=== PATIENT | female | born 1985 | race Hispanic/Latino ===

== ENCOUNTER 2016-08-04 08:40 | Emergency (ER) | payer MEDICAID ==
[2016-08-04] MEDS ORDERED: PHENERGAN/CODEINE 6.25-10 MG/5ML PO ONE (09:08)
[2016-08-04] MEDS ORDERED: TYLENOL/CODEINE PO ONE (09:18)
--- NOTE | 2016-08-04 10:14 | XRay Report ---
ROUTINE CHEST, TWO VIEWS: HISTORY: Cough. The trachea, heart, mediastinal contour, lung greer and bony thorax are unremarkable. IMPRESSION: Unremarkable chest x-ray.
[2016-08-04 10:32] LABS: Basophils % (Auto) 1.5 % (0.0-1.8); Mean Corpuscular HGB Conc 30 % (30-34); Platelet Count 304 K/mm3 (140-440); Red Blood Count 4.76 M/mm3 (3.65-5.03); Red Cell Distribution Width 17.5 % (13.2-15.2); White Blood Count 6.1 K/mm3 (4.5-11.0)
[2016-08-04 10:35] LABS: Hematocrit 30.9 % (30.3-42.9); Hemoglobin 9.1 gm/dl (10.1-14.3); Mean Corpuscular Hemoglobin 19 pg (28-32); Mean Corpuscular Volume 65 fl (79-97)
[2016-08-04 10:46] LABS: Anion Gap 16 mmol/L; Blood Urea Nitrogen 7 mg/dL (7-17); Calcium 8.4 mg/dL (8.4-10.2); Carbon Dioxide 24 mmol/L (22-30); Chloride 102.5 mmol/L (98-107); Glucose 93 mg/dL (65-100); Sodium 138 mmol/L (137-145)
[2016-08-04 11:08] VITALS: BP 157/94
--- NOTE | 2016-08-04 12:12 | Emergency Department Report ---
Entered by OCTAVIA IRVIN, acting as scribe for BECKA FERGUSON PA. - General Chief Complaint: Upper Respiratory Infection Stated Complaint: COUGH/SOB Time Seen by Provider: 08/04/16 09:18 Source: patient Mode of arrival: Ambulatory Limitations: No Limitations - History of Present Illness Initial Comments: 30 y/o female with history of anemia, presents to the ED c/o cough beginning 1.5 months ago. The cough is characterized as occasionally productive. Associated symptom of chest congestion, but she denies fever, abdominal pain, nausea, and vomiting. The symptoms are not alleviated by OTC cough medication ( cough syrup, theraflu, cough drops) and there are no aggravating factors. Positive for history of similar symptoms and patient was diagnosed with allergies at another ED approximately 5 months ago and prescribed an asthma pump and Zyrtec at that time. Patient states that she quit taking Zyrtec 1.5 months ago due to the cost associated. Noted the patient states she was diagnosed with hypertension while , but taken off her HTN medication by her PCP 8 months ago. MD Complaint: cough, other (chest congestion) -: month(s) Severity: moderate Severity scale (0 -10): 6 Consistency: constant Improves With: nothing Worsens With: nothing Context: other (patient states she has a Hx of allergies, seen here approximately 5 months ago and given an asthma pump) Associated Symptoms: other (chest congestion). denies: fever, abdominal pain, nausea, vomiting Treatments Prior to Arrival: other (OTC cough medicine (theraflu, cough syrup, cough drops)) - Related Data Previous Rx's Medication Instructions Recorded Last Taken Type Acetaminophen/Codeine 1 tab PO Q6H PRN #25 tab 06/10/14 Unknown Rx [Acetaminophen-Codeine #3 TAB] Cyclobenzaprine [Flexeril 10mg] 10 mg PO TID PRN #30 tablet 06/10/14 Unknown Rx Lisinopril/Hydrochlorothiazide 1 tab PO QDAY #90 tablet 06/10/14 Unknown Rx [Zestoretic 10-12.5 mg] Ibuprofen [Motrin 600 MG tab] 600 mg PO Q8H PRN #50 tablet 06/15/14 Unknown Rx Phenazopyridine [Pyridium] 200 mg PO TID #7 tablet 06/15/14 Unknown Rx Sulfamethoxazole/Trimethoprim 1 each PO BID #6 tablet 06/15/14 Unknown Rx [Bactrim Ds] Cyclobenzaprine [Flexeril] 10 mg PO TID PRN #15 tablet 02/15/16 Unknown Rx Diclofenac Sodium 75 mg PO BID #20 tablet.dr 02/15/16 Unknown Rx Albuterol Sulfate [Ventolin HFA] 2 puff IH Q4H PRN #1 hfa.aer.ad 03/26/16 Unknown Rx Cefuroxime [Ceftin] 500 mg PO Q12H #20 tablet 03/26/16 Unknown Rx Cetirizine HCl [ZyrTEC] 10 mg PO DAILY #30 capsule 03/26/16 Unknown Rx guaiFENesin/DEXTROMETHORPHAN 1 tab PO BID #10 tab 03/26/16 Unknown Rx [Mucinex DM ER 600-30 mg TAB] Acetamin/Codeine 120-12Mg/5 ml 5 ml PO TID PRN #100 ml 08/04/16 Unknown Rx [Tylenol/Codeine 120-12 mg/5 ml] Cetirizine HCl [ZyrTEC] 10 mg PO QDAY #30 tab.chew 08/04/16 Unknown Rx Docusate Sodium [Colace CAP] 100 mg PO BID PRN #20 capsule 08/04/16 Unknown Rx Ferrous Sulfate [Feosol 325 MG tab] 325 mg PO QDAY #30 tablet 08/04/16 Unknown Rx Allergies Allergy/AdvReac Type Severity Reaction Status Date / Time No Known Allergies Allergy Verified 08/04/16 09:02 ED Review of Systems Comment: All other systems reviewed and negative Constitutional: denies: fever Respiratory: cough (ocassionally productive), other (chest congestion) Gastrointestinal: denies: abdominal pain, nausea, vomiting ED Past Medical Hx - Past Medical History Hx Hypertension: Yes (WITH ) Additional medical history: Vaginal delivery x 2 - Surgical History Additional Surgical History: . T & A. TUBAL LIGATION - Social History Smoking Status: Never Smoker Substance Use Type: None - Medications Home Medications: Home Medications Medication Instructions Recorded Confirmed Last Taken Type Acetaminophen/Codeine 1 tab PO Q6H PRN #25 tab 06/10/14 Unknown Rx [Acetaminophen-Codeine #3 TAB] Cyclobenzaprine [Flexeril 10mg] 10 mg PO TID PRN #30 tablet 06/10/14 Unknown Rx Lisinopril/Hydrochlorothiazide 1 tab PO QDAY #90 tablet 06/10/14 Unknown Rx [Zestoretic 10-12.5 mg] Ibuprofen [Motrin 600 MG tab] 600 mg PO Q8H PRN #50 tablet 06/15/14 Unknown Rx Phenazopyridine [Pyridium] 200 mg PO TID #7 tablet 06/15/14 Unknown Rx Sulfamethoxazole/Trimethoprim 1 each PO BID #6 tablet 06/15/14 Unknown Rx [Bactrim Ds] Cyclobenzaprine [Flexeril] 10 mg PO TID PRN #15 tablet 02/15/16 Unknown Rx Diclofenac Sodium 75 mg PO BID #20 tablet.dr 02/15/16 Unknown Rx Albuterol Sulfate [Ventolin HFA] 2 puff IH Q4H PRN #1 hfa.aer.ad 03/26/16 Unknown Rx Cefuroxime [Ceftin] 500 mg PO Q12H #20 tablet 03/26/16 Unknown Rx Cetirizine HCl [ZyrTEC] 10 mg PO DAILY #30 capsule 03/26/16 Unknown Rx guaiFENesin/DEXTROMETHORPHAN 1 tab PO BID #10 tab 03/26/16 Unknown Rx [Mucinex DM ER 600-30 mg TAB] Acetamin/Codeine 120-12Mg/5 ml 5 ml PO TID PRN #100 ml 08/04/16 Unknown Rx [Tylenol/Codeine 120-12 mg/5 ml] Cetirizine HCl [ZyrTEC] 10 mg PO QDAY #30 tab.chew 08/04/16 Unknown Rx Docusate Sodium [Colace CAP] 100 mg PO BID PRN #20 capsule 08/04/16 Unknown Rx Ferrous Sulfate [Feosol 325 MG tab] 325 mg PO QDAY #30 tablet 08/04/16 Unknown Rx ED Physical Exam - General Limitations: No Limitations General appearance: other (The patient is well-developed and well-nourished. Patient is in NAD) - Head Head exam: Present: atraumatic, normocephalic - Eye Eye exam: Present: normal appearance, PERRL - ENT ENT exam: Present: normal orophraynx (no erythema, swelling, or exudates), TM's normal bilaterally (hearing grossly intact), normal external ear exam, other ( normal nasal mucosa with no nasal discharge) - Neck Neck exam: Present: full ROM (supple). Absent: tenderness, lymphadenopathy - Respiratory Respiratory exam: Present: normal lung sounds bilaterally, other (patient actively coughing during exam). Absent: respiratory distress, wheezes, chest wall tenderness - Cardiovascular Cardiovascular Exam: Present: regular rate, normal rhythm, normal heart sounds. Absent: systolic murmur, diastolic murmur, rubs, gallop - GI/Abdominal GI/Abdominal exam: Present: soft, normal bowel sounds. Absent: distended, tenderness, guarding, rebound - Extremities Exam Extremities exam: Present: normal inspection, full ROM - Neurological Exam Neurological exam: Present: alert, oriented X3 - Psychiatric Psychiatric exam: Present: normal affect, normal mood - Skin Skin exam: Present: warm, dry, intact ED Course Vital Signs 08/04/16 08/04/16 08/04/16 08:55 09:51 11:07 Temperature 98.3 F Pulse Rate 82 89 Respiratory 19 20 20 Rate Blood Pressure 170/116 Blood Pressure 157/94 [Left] O2 Sat by Pulse 100 98 Oximetry ED Medical Decision Making - Lab Data Result diagrams: 08/04/16 10:17 08/04/16 10:17 Vital Signs 08/04/16 08/04/16 08/04/16 08:55 09:51 11:07 Temperature 98.3 F Pulse Rate 82 89 Respiratory 19 20 20 Rate Blood Pressure 170/116 Blood Pressure 157/94 [Left] O2 Sat by Pulse 100 98 Oximetry Lab Results 08/04/16 08/04/16 Range/Units 10:17 10:17 WBC 6.1 (4.5-11.0) K/mm3 RBC 4.76 (3.65-5.03) M/mm3 Hgb 9.1 L (10.1-14.3) gm/dl Hct 30.9 (30.3-42.9) % MCV 65 L (79-97) fl MCH 19 L (28-32) pg MCHC 30 (30-34) % RDW 17.5 H (13.2-15.2) % Plt Count 304 (140-440) K/mm3 Lymph % (Auto) 24.7 (13.4-35.0) % [place] % (Auto) 6.6 (0.0-7.3) % Eos % (Auto) 5.0 H (0.0-4.3) % Baso % (Auto) 1.5 (0.0-1.8) % Lymph # 1.5 (1.2-5.4) K/mm3 [place] # 0.4 (0.0-0.8) K/mm3 Eos # 0.3 (0.0-0.4) K/mm3 Baso # 0.1 (0.0-0.1) K/mm3 Seg Neutrophils % 62.2 (40.0-70.0) % Seg Neutrophils # 3.8 (1.8-7.7) K/mm3 Sodium 138 (137-145) mmol/L Potassium 4.0 (3.6-5.0) mmol/L Chloride 102.5 (98-107) mmol/L Carbon Dioxide 24 (22-30) mmol/L Anion Gap 16 mmol/L BUN 7 (7-17) mg/dL Creatinine 0.5 L (0.7-1.2) mg/dL Estimated GFR > 60 ml/min BUN/Creatinine Ratio 14.00 % Glucose 93 (65-100) mg/dL Calcium 8.4 (8.4-10.2) mg/dL - Radiology Data Radiology results: report reviewed, image reviewed ROUTINE CHEST, TWO VIEWS: HISTORY: Cough. The trachea, heart, mediastinal contour, lung greer and bony thorax are unremarkable. IMPRESSION: Unremarkable chest x-ray. Transcribed By: TTR Dictated By: BLAKE ZAMORA JR, MD Electronically Authenticated By: BLAKE ZAMORA JR, MD Signed Date/Time: 08/04/16 1007 - Medical Decision Making 30 y/o female patient presents complaining of persistent cough beginning 1.5 months ago. X-ray reveals normal chest. She was given promethazine/codeine and reported symptomatic relief post medication. Her lab results reveal a hemoglobin level of 9.1 and elevated eosinophils. Patient will be put on ferrous sulfate and given Colace as needed for constipation. Patient is in no acute distress at this time. She will be discharged home and is encouraged to follow up with a primary care provider. She will be sent home on acetaminophen/ codeine and Zyrtec and is encouraged to return to the emergency room for any worsening symptoms. ED Disposition Clinical Impression: Cough Anemia Qualifiers: Anemia type: unspecified type Qualified Code(s): D64.9 - Anemia, unspecified Disposition: DISCHARGED TO HOME OR SELFCARE Is pt being admited?: No Does the pt Need Aspirin: No Condition: Stable Instructions: Chronic Cough (ED), Allergies (ED) Additional Instructions: Follow-up with primary care provider. Return to the emergency department if symptoms worsen. Prescriptions: Acetamin/Codeine 120-12Mg/5 ml [Tylenol/Codeine 120-12 mg/5 ml] 5 ml PO TID PRN #100 ml PRN Reason: Pain Cetirizine HCl [ZyrTEC] 10 mg PO QDAY #30 tab.chew Docusate Sodium [Colace CAP] 100 mg PO BID PRN #20 capsule PRN Reason: Constipation Ferrous Sulfate [Feosol 325 MG tab] 325 mg PO QDAY #30 tablet Referrals: PRIMARY CAREMD [Referring] - 3-5 Days JAYDEN SHINE MD [Staff Physician] - 3-5 Days Forms: Work/School Release Form(ED) Time of Disposition: 11:52 This documentation as recorded by the BRANDEE barrett REBEKAH,accurately reflects the service I personally performed and the decisions made by MARTY gutierrez NATASHA, PA.
== END 2016-08-04 12:18 | disposition home or self-care (01) ==
LOC: ED 08:40
DX: D64.9 Anemia, unspecified (principal); R05 Cough; I10 Essential (primary) hypertension
CPT/HCPCS: 36415; 71020; 80048; 85025; 99284

== ENCOUNTER 2017-12-07 07:38 | Emergency (ER) | payer MEDICAID, OTHER ==
--- NOTE | 2017-12-07 08:02 | Emergency Department Report ---
ED Rash HPI - HPI Chief Complaint: Skin/Abscess/Foreign Body Stated Complaint: INSECT BITE Time Seen by Provider: 12/07/17 08:01 Duration: 2 Days Location: Lower Extremities (left leg) Suspected Cause: Insect Rash Symptoms: No Itching, No Facial Swelling, No Tongue/Oral Swelling, No Breathing Difficulties, No Choking Sensation, No Wheezing/Dyspnea, No Peeling, No Blistering, No Fever, No Lightheaded, No Malaise, No Myalgias Severity: mild (4/10) Other History: This is a 32-year-old female here because she says she had a insect bites to her left leg 4 days ago. She is reported redness and swelling with a pimple. Pain is 4/10. Denies any fever or chills. Patient has a history of hypertension. Denies any nausea vomiting and. Denies any fever or chills. Denies any sore throat. Denies any chest pain or difficulty present. Denies any cough, stridor or wheeze and or difficulty swallowing. Says she plays alcohol and Neosporin at the site but it is not getting better. She says she believes it was a spider that bit her but she is unsure. Tetanus vaccine is not up-to-date. No alleviating or exacerbating factors ED Review of Systems ROS: Stated complaint: INSECT BITE Other details as noted in HPI Constitutional: denies: chills, fever Eyes: denies: eye pain, eye discharge, vision change ENT: denies: ear pain, throat pain, congestion Respiratory: denies: cough, shortness of breath, SOB at rest, wheezing Cardiovascular: denies: chest pain, palpitations, edema, syncope Gastrointestinal: diarrhea. denies: nausea, vomiting Musculoskeletal: denies: back pain, joint swelling, arthralgia, myalgia Skin: rash. denies: lesions, pruritus Neurological: denies: headache ED Past Medical Hx - Past Medical History Previous Medical History?: Yes Hx Hypertension: Yes Hx Seizures: Yes Additional medical history: Vaginal delivery x 2 - Surgical History Past Surgical History?: Yes Additional Surgical History: . T & A. TUBAL LIGATION - Social History Smoking Status: Never Smoker Substance Use Type: None - Medications Home Medications: Home Medications Medication Instructions Recorded Confirmed Last Taken Type Acetaminophen/Codeine 1 tab PO Q6H PRN #25 tab 06/10/14 Unknown Rx [Acetaminophen-Codeine #3 TAB] Cyclobenzaprine [Flexeril 10mg] 10 mg PO TID PRN #30 tablet 06/10/14 Unknown Rx Lisinopril/Hydrochlorothiazide 1 tab PO QDAY #90 tablet 06/10/14 Unknown Rx [Zestoretic 10-12.5 mg] Phenazopyridine [Pyridium] 200 mg PO TID #7 tablet 06/15/14 Unknown Rx Sulfamethoxazole/Trimethoprim 1 each PO BID #6 tablet 06/15/14 Unknown Rx [Bactrim Ds] Cyclobenzaprine [Flexeril] 10 mg PO TID PRN #15 tablet 02/15/16 Unknown Rx Diclofenac Sodium 75 mg PO BID #20 tablet.dr 02/15/16 Unknown Rx Albuterol Sulfate [Ventolin HFA] 2 puff IH Q4H PRN #1 hfa.aer.ad 03/26/16 Unknown Rx Cefuroxime [Ceftin] 500 mg PO Q12H #20 tablet 03/26/16 Unknown Rx Cetirizine HCl [ZyrTEC] 10 mg PO DAILY #30 capsule 03/26/16 Unknown Rx guaiFENesin/DEXTROMETHORPHAN 1 tab PO BID #10 tab 03/26/16 Unknown Rx [Mucinex DM ER 600-30 mg TAB] Acetamin/Codeine 120-12Mg/5 ml 5 ml PO TID PRN #100 ml 08/04/16 Unknown Rx [Tylenol/Codeine 120-12 mg/5 ml] Cetirizine HCl [ZyrTEC] 10 mg PO QDAY #30 tab.chew 08/04/16 Unknown Rx Docusate Sodium [Colace CAP] 100 mg PO BID PRN #20 capsule 08/04/16 Unknown Rx Ferrous Sulfate [Feosol 325 MG tab] 325 mg PO QDAY #30 tablet 08/04/16 Unknown Rx Cephalexin [Keflex] 500 mg PO Q8H 7 Days #21 capsule 12/07/17 Unknown Rx Ibuprofen [Motrin 600 MG tab] 600 mg PO Q8H PRN #12 tablet 12/07/17 Unknown Rx Rash Exam - Exam General: Vital signs noted. No distress. Alert and acting appropriately. This is a 32-year-old female well-nourished well-developed in no acute distress. HEENT: No Periorbital Edema, No Conjuctival Injection, No Chemosis, No Perioral Edema, No Tongue Edema, No Uvular Edema, No Compromised Airway, No Drooling Lungs: Yes Good Air Exchange (CTAB), No Wheezes, No Ronchi, No Stridor, No Cough , No Labored Respirations, No Retractions, No Use of Accessory Muscles, No Other Abnormal Lung Sounds Skin: Yes Tenderness (pustule left mid leg), Yes Erythema (left mid leg pus still), Yes Other (patient was presents to the left mid leg.End palpates, erythema.), No Urticarial Rash, No Maculopapular Rash, No Morbilliform rash, No Bulla(e), No Weeping, No Encrustations Other: Positive: Abdomen Normal, Neurologic Normal, Musculoskeletal Normal ED Course Vital Signs 12/07/17 07:44 Temperature 98.5 F Pulse Rate 78 Respiratory 16 Rate Blood Pressure 163/104 O2 Sat by Pulse 100 Oximetry Vital Signs 12/07/17 12/07/17 07:44 08:12 Temperature 98.5 F Pulse Rate 78 Respiratory 16 Rate Blood Pressure 163/104 Blood Pressure 142/78 [Left] O2 Sat by Pulse 100 Oximetry - Reevaluation(s) Reevaluation #1: 12/07/17 08:13 Patient received Keflex 500 mg by mouth for pustule to the left leg and Boostrix 0.5 mL to update tetanus ED Medical Decision Making - Medical Decision Making This is a 32-year-old female here report that she got bit by an insect possibly a spider 2 days ago and she has right raised area to her left leg. She reports pain is 4-10. Tetanus vaccine is up-to-date and she is here to be treated. Was examined by myself and found to have pustule that is red with minimal tenderness to palpate to left lower anterior leg otherwise exam is normal. I discussed the patient her diagnosis and she voiced understanding. No respiratory or oral symptoms. Pustule, left leg-patient started on Keflex 500 mg by mouth and she was given Boostrix 0.5 mL to update tetanus. I will discharge her home on Keflex and Motrin. I discussed with her she needs to find Neosporin ointment to affected area twice a day after cleaning with peroxide and she voiced understanding. Patient education on medication and diagnosis that she voiced understanding Discharge home from ED in stable condition to follow up with her primary care physician in 3 days. Vital signs are stable she is afebrile. Discharge home with prescription for Keflex and Motrin. Critical care attestation.: If time is entered above; I have spent that time in minutes in the direct care of this critically ill patient, excluding procedure time. ED Disposition Clinical Impression: Pustule Insect bite Qualifiers: Encounter type: initial encounter Qualified Code(s): W57.XXXA - Bitten or stung by nonvenomous insect and other nonvenomous arthropods, initial encounter Disposition: TO HOME OR SELFCARE Is pt being admited?: No Does the pt Need Aspirin: No Condition: Stable Instructions: Insect Bite or Sting (ED), Acute Rash (ED) Additional Instructions: Please keep affected area clean and dry Clean area with peroxide twice daily and apply [id number] Neosporin ointment Take Antibiotic as prescribed Follow up with primary care physician in 3 days and if he do not have one you can follow-up at [facility] Prescriptions: Cephalexin [Keflex] 500 mg PO Q8H 7 Days #21 capsule Ibuprofen [Motrin 600 MG tab] 600 mg PO Q8H PRN #12 tablet PRN Reason: Pain Referrals: [facility] [Outside] - 12/10/17 Forms: Work/School Release Form(ED)
[2017-12-07] MEDS ORDERED: BOOSTRIX IM ONE (08:06)
[2017-12-07] MEDS ORDERED: KEFLEX PO ONE (08:06)
[2017-12-07 08:13] VITALS: BP 142/78
== END 2017-12-07 08:32 | disposition home or self-care (01) ==
LOC: ED 07:38
DX: S80.862A Insect bite (nonvenomous), left lower leg, initial encounter (principal); I10 Essential (primary) hypertension; W57.XXXA Bitten or stung by nonvenomous insect and other nonvenomous arthropods, initial encounter; Y93.89 Activity, other specified; Y92.89 Other specified places as the place of occurrence of the external cause; Y99.8 Other external cause status
CPT/HCPCS: 90471; 90715; 99282

== ENCOUNTER 2018-10-15 17:40 | Emergency (ER) | payer OTHER ==
--- NOTE | 2018-10-15 17:51 | Emergency Department Report ---
Chief Complaint: Headache Stated Complaint: HBP Time Seen by Provider: 10/15/18 17:47 - HPI History of Present Illness: This is a 32 y.o. F. that presents to the ER with elevated blood pressure from chiropractor office. PMH of Gestational HTN Reports headache LMP: 10/09/18 Current smoker - Exam Vital Signs: Vital Signs 10/15/18 17:49 Temperature 98.9 F Pulse Rate 87 Respiratory 16 Rate Blood Pressure 183/111 O2 Sat by Pulse 100 Oximetry MSE screening note: Focused history and physical exam performed. Due to findings the following was ordered: This initial assessment/diagnostic orders/clinical plan/treatment(s) is/are subject to change based on patient's health status, clinical progression and re- assessment by fellow clinical providers in the ED. Further treatment and workup at subsequent clinical providers discretion. Patient/guardians urged not to elope from the ED as their condition may be serious if not clinically assessed and managed. Initial orders include: 1- Patient sent to [facility] for further evaluation and treatment 2- Labs ED Disposition for MSE Condition: Stable
[2018-10-15 19:10] LABS: Hemoglobin 9.7 gm/dl (10.1-14.3); Mean Corpuscular HGB Conc 31 % (30-34); Platelet Count 381 K/mm3 (140-440)
[2018-10-15 19:12] LABS: Mean Corpuscular Volume 63 fl (79-97)
[2018-10-15 19:19] LABS: Alanine Aminotransferase 7 units/L (7-56); Albumin 4.1 g/dL (3.9-5); BUN/Creatinine Ratio 16; Blood Urea Nitrogen 8 mg/dL (7-17); Calcium 9.3 mg/dL (8.4-10.2); Hemolysis Index 7
[2018-10-15] MEDS ORDERED: HCTZ PO ONE (22:20)
[2018-10-15] MEDS ORDERED: BENADRYL PO ONE (22:20)
[2018-10-15] MEDS ORDERED: ZESTRIL PO ONE (22:20)
[2018-10-15] MEDS ORDERED: TYLENOL PO ONE (22:20)
--- NOTE | 2018-10-15 22:25 | Emergency Department Report ---
ED Headache HPI - General Chief Complaint: Headache Stated Complaint: HBP Time Seen by Provider: 10/15/18 17:47 - History of Present Illness Initial Comments: This is a 32 y.o. F. that presents to the ER with elevated blood pressure from chiropractor office. PMH of Gestational HTN Reports headache LMP: 10/09/18 Current smoker Timing/Duration: other (3 days hx of htn ) Quality: moderate Head Injury Location: frontal Recent Head Trauma: occasional headaches Modifying Factors: improves with: rest Associated Symptoms: denies: confusion, fatigue, fever/chills, nausea/vomiting, seizures, vision changes, weakness Allergies/Adverse Reactions: Allergies No Known Allergies Allergy (Verified 10/15/18 17:44) Home Medications: Ambulatory Orders Acetaminophen/Codeine [Acetaminophen-Codeine #3 TAB] 1 tab PO Q6H PRN #25 tab 06/10/14 Cyclobenzaprine [Flexeril 10mg] 10 mg PO TID PRN #30 tablet 06/10/14 Lisinopril/Hydrochlorothiazide [Zestoretic 10-12.5 mg] 1 tab PO QDAY #90 tablet 06/10/14 Phenazopyridine [Pyridium] 200 mg PO TID #7 tablet 06/15/14 Sulfamethoxazole/Trimethoprim [Bactrim Ds] 1 each PO BID #6 tablet 06/15/14 Cyclobenzaprine [Flexeril] 10 mg PO TID PRN #15 tablet 02/15/16 Diclofenac Sodium 75 mg PO BID #20 tablet.dr 02/15/16 Albuterol Sulfate [Ventolin HFA] 2 puff IH Q4H PRN #1 hfa.aer.ad 03/26/16 Cetirizine HCl [ZyrTEC] 10 mg PO DAILY #30 capsule 03/26/16 cefUROXime [Ceftin] 500 mg PO Q12H #20 tablet 03/26/16 guaiFENesin/DEXTROMETHORPHAN [Mucinex DM ER 600-30 mg TAB] 1 tab PO BID #10 tab 03/26/16 Acetamin/Codeine 120-12Mg/5 ml [Tylenol/Codeine 120-12 mg/5 ml] 5 ml PO TID PRN #100 ml 08/04/16 Cetirizine HCl [ZyrTEC] 10 mg PO QDAY #30 tab.chew 08/04/16 Docusate Sodium [Colace CAP] 100 mg PO BID PRN #20 capsule 08/04/16 Ferrous Sulfate [Feosol 325 MG tab] 325 mg PO QDAY #30 tablet 08/04/16 Ibuprofen [Motrin 600 MG tab] 600 mg PO Q8H PRN #12 tablet 12/07/17 cephALEXin [Keflex] 500 mg PO Q8H 7 Days #21 capsule 12/07/17 Acetaminophen [Acetaminophen TAB] 1,000 mg PO Q6HR PRN #30 tablet 10/15/18 Lisinopril/Hydrochlorothiazide [Zestoretic 10-12.5 mg Tablet] 1 each PO DAILY # 30 tablet 10/15/18 diphenhydrAMINE [Benadryl CAP] 25 mg PO Q6HR PRN #30 capsule 10/15/18 ED Review of Systems ROS: Stated complaint: HBP Other details as noted in HPI Constitutional: denies: chills, fever Eyes: denies: eye pain, eye discharge, vision change ENT: denies: ear pain, throat pain, congestion Respiratory: no symptoms reported. denies: cough, shortness of breath, wheezing Cardiovascular: denies: chest pain, palpitations Endocrine: no symptoms reported Gastrointestinal: denies: abdominal pain, nausea, vomiting, diarrhea Genitourinary: denies: urgency, dysuria, hematuria, discharge Musculoskeletal: denies: back pain, joint swelling, arthralgia Skin: denies: rash, lesions Neurological: headache. denies: weakness, numbness, paresthesias, confusion, abnormal gait, vertigo Psychiatric: denies: anxiety, depression Hematological/Lymphatic: denies: easy bleeding, easy bruising ED Past Medical Hx - Past Medical History Previous Medical History?: No Hx Hypertension: Yes Hx Seizures: Yes Additional medical history: Vaginal delivery x 2 - Surgical History Additional Surgical History: . T & A. TUBAL LIGATION - Social History Smoking Status: Current Every Day Smoker Substance Use Type: None - Medications Home Medications: Home Medications Medication Instructions Recorded Confirmed Last Taken Type Acetaminophen/Codeine 1 tab PO Q6H PRN #25 tab 06/10/14 Unknown Rx [Acetaminophen-Codeine #3 TAB] Cyclobenzaprine [Flexeril 10mg] 10 mg PO TID PRN #30 tablet 06/10/14 Unknown Rx Lisinopril/Hydrochlorothiazide 1 tab PO QDAY #90 tablet 06/10/14 Unknown Rx [Zestoretic 10-12.5 mg] Phenazopyridine [Pyridium] 200 mg PO TID #7 tablet 06/15/14 Unknown Rx Sulfamethoxazole/Trimethoprim 1 each PO BID #6 tablet 06/15/14 Unknown Rx [Bactrim Ds] Cyclobenzaprine [Flexeril] 10 mg PO TID PRN #15 tablet 02/15/16 Unknown Rx Diclofenac Sodium 75 mg PO BID #20 tablet.dr 02/15/16 Unknown Rx Albuterol Sulfate [Ventolin HFA] 2 puff IH Q4H PRN #1 hfa.aer.ad 03/26/16 Unknown Rx Cetirizine HCl [ZyrTEC] 10 mg PO DAILY #30 capsule 03/26/16 Unknown Rx cefUROXime [Ceftin] 500 mg PO Q12H #20 tablet 03/26/16 Unknown Rx guaiFENesin/DEXTROMETHORPHAN 1 tab PO BID #10 tab 03/26/16 Unknown Rx [Mucinex DM ER 600-30 mg TAB] Acetamin/Codeine 120-12Mg/5 ml 5 ml PO TID PRN #100 ml 08/04/16 Unknown Rx [Tylenol/Codeine 120-12 mg/5 ml] Cetirizine HCl [ZyrTEC] 10 mg PO QDAY #30 tab.chew 08/04/16 Unknown Rx Docusate Sodium [Colace CAP] 100 mg PO BID PRN #20 capsule 08/04/16 Unknown Rx Ferrous Sulfate [Feosol 325 MG tab] 325 mg PO QDAY #30 tablet 08/04/16 Unknown Rx Ibuprofen [Motrin 600 MG tab] 600 mg PO Q8H PRN #12 tablet 12/07/17 Unknown Rx cephALEXin [Keflex] 500 mg PO Q8H 7 Days #21 capsule 12/07/17 Unknown Rx Acetaminophen [Acetaminophen TAB] 1,000 mg PO Q6HR PRN #30 tablet 10/15/18 Unknown Rx Lisinopril/Hydrochlorothiazide 1 each PO DAILY #30 tablet 10/15/18 Unknown Rx [Zestoretic 10-12.5 mg Tablet] diphenhydrAMINE [Benadryl CAP] 25 mg PO Q6HR PRN #30 capsule 10/15/18 Unknown Rx ED Physical Exam - General Limitations: No Limitations General appearance: alert, in no apparent distress - Head Head exam: Present: atraumatic, normocephalic - Eye Eye exam: Present: normal appearance, PERRL, EOMI. Absent: nystagmus Pupils: Present: normal accommodation - ENT ENT exam: Present: normal orophraynx, mucous membranes moist, TM's normal bilaterally, normal external ear exam - Expanded ENT Exam Expanded Ear exam: Present: normal external inspection Mouth exam: Present: normal external inspection Throat exam: Positive: normal inspection - Neck Neck exam: Present: normal inspection, full ROM. Absent: tenderness, meningismus, lymphadenopathy, thyromegaly - Respiratory Respiratory exam: Present: normal lung sounds bilaterally. Absent: wheezes, stridor, chest wall tenderness - Cardiovascular Cardiovascular Exam: Present: regular rate, normal rhythm, normal heart sounds. Absent: systolic murmur, diastolic murmur, rubs, gallop - GI/Abdominal GI/Abdominal exam: Present: soft, normal bowel sounds. Absent: distended, tenderness, guarding, rebound, rigid, bruit, hernia - Extremities Exam Extremities exam: Present: normal inspection, full ROM, normal capillary refill. Absent: tenderness, pedal edema, joint swelling, calf tenderness - Back Exam Back exam: Present: normal inspection, full ROM. Absent: tenderness, CVA tenderness (R), CVA tenderness (L), muscle spasm, paraspinal tenderness, rash noted - Neurological Exam Neurological exam: Present: alert, oriented X3, CN II-XII intact, normal gait, reflexes normal. Absent: motor sensory deficit - Expanded Neurological Exam Expanded Patient oriented to: Present: person, place, time Speech: Present: fluid speech Cranial nerves: EOM's Intact: Normal, Tongue Deviation: Normal, Nystagmus: Normal, Facial Sensation: Normal Cerebellar function: Finger to Nose: Normal, Heel to Cerda: Normal, Romberg: Normal Upper motor neuron: Elio Neglect: Normal, Pronator Drift: Normal, Babinski Sign: Normal, Sensory Extinction: Normal Motor strength exam: RUE: 5, LUE: 5, RLE: 5, LLE: 5 DTR: bicep (R): 2+, bicep (L): 2+, ankle (R): 2+, ankle (L): 2+ Best Eye Response ([place]): (4) open spontaneously Best Motor Response ([place]): (6) obeys commands Best Verbal Response ([place]): (5) oriented Manolo Total: 15 - Psychiatric Psychiatric exam: Present: normal affect, normal mood - Skin Skin exam: Present: warm, dry, intact, normal color. Absent: rash ED Course Vital Signs 10/15/18 17:49 Temperature 98.9 F Pulse Rate 87 Respiratory 16 Rate Blood Pressure 183/111 O2 Sat by Pulse 100 Oximetry ED Medical Decision Making - Lab Data Result diagrams: 10/15/18 18:51 10/15/18 18:51 Labs 10/15/18 10/15/18 18:51 18:51 WBC 9.1 RBC 5.10 H Hgb 9.7 L Hct 32.0 MCV 63 L MCH 19 L MCHC 31 RDW 19.0 H Plt Count 381 Sodium 140 Potassium 3.8 Chloride 106.4 Carbon Dioxide 23 Anion Gap 14 BUN 8 Creatinine 0.5 L Estimated GFR > 60 BUN/Creatinine Ratio 16 Glucose 87 Calcium 9.3 Total Bilirubin 0.60 AST 11 ALT 7 Alkaline Phosphatase 57 Total Protein 6.7 Albumin 4.1 Albumin/Globulin Ratio 1.6 - Medical Decision Making Patient was improved this is shortness of breath no dizziness no lightheadedness no nausea vomiting no chest pain patient is ambulatory with steady gait is alert and oriented 3 patient in no acute distress at this time headache is 1/10, plan Tylenol when necessary headache restart lisinopril and hctz BP, follow up with pcp in 2-3 days, pt verbalized agreement and understanding of same. Critical care attestation.: If time is entered above; I have spent that time in minutes in the direct care of this critically ill patient, excluding procedure time. ED Disposition Clinical Impression: Headache Qualifiers: Headache type: unspecified Headache chronicity pattern: unspecified pattern Intractability: not intractable Qualified Code(s): R51 - Headache HTN (hypertension) Qualifiers: Hypertension type: essential hypertension Qualified Code(s): I10 - Essential (primary) hypertension Disposition: - TO HOME OR SELFCARE Is pt being admited?: No Does the pt Need Aspirin: No Condition: Stable Instructions: Hypertension (ED), Acute Headache (ED) Prescriptions: Acetaminophen [Acetaminophen TAB] 1,000 mg PO Q6HR PRN #30 tablet PRN Reason: Headache diphenhydrAMINE [Benadryl CAP] 25 mg PO Q6HR PRN #30 capsule PRN Reason: Headache Lisinopril/Hydrochlorothiazide [Zestoretic 10-12.5 mg Tablet] 1 each PO DAILY #30 tablet Referrals: [facility] [Outside] - 3-5 Days Forms: Work/School Release Form(ED) Time of Disposition: 22:34
[2018-10-15 22:45] VITALS: BP 142/98
== END 2018-10-15 22:47 | disposition home or self-care (01) ==
LOC: ED 17:40
DX: I10 Essential (primary) hypertension (principal); F17.200 Nicotine dependence, unspecified, uncomplicated; Z90.89 Acquired absence of other organs; Z98.51 Tubal ligation status
CPT/HCPCS: 36415; 80053; 85027; 99283

== ENCOUNTER 2018-11-24 14:22 | Emergency (ER) | payer OTHER ==
[2018-11-24 14:54] VITALS: BP 160/104
--- NOTE | 2018-11-24 15:10 | Event Note ---
ED Screening Note Date of service: 11/24/18 Time: 15:06 ED Screening Note: This is a 32 y.o. F. that presents to the ER with abnormal menses. Reports vaginal bleeding started today 10 days from last. Intermittent vaginal discharge. Hx of tubal ligation, HTN Taking blood pressure medication every 4-5 days because she is almost out. Scheduled appointment with [employer]NALYST Dr. Moulton 12/03/2018. This initial assessment/diagnostic orders/clinical plan/treatment(s) is/are subject to change based on patients health status, clinical progression and re- assessment by fellow clinical providers in the ED. Further treatment and workup at subsequent clinical providers discretion. Patient/guardian urged not to elope from the ED as their condition may be serious if not clinically assessed and managed. Initial orders include: UA
[2018-11-24 16:17] LABS: Basophils # (Auto) 0.1 K/mm3 (0.0-0.1); Basophils % (Auto) 0.9 % (0.0-1.8); Eosinophils # (Auto) 0.4 K/mm3 (0.0-0.4); Eosinophils % (Auto) 4.2 % (0.0-4.3); Hematocrit 31.3 % (30.3-42.9); Hemoglobin 9.4 gm/dl (10.1-14.3); Lymphocytes # (Auto) 1.5 K/mm3 (1.2-5.4); Lymphocytes % (Auto) 16.5 % (13.4-35.0); Mean Corpuscular HGB Conc 30 % (30-34); Monocytes # (Auto) 0.6 K/mm3 (0.0-0.8); Monocytes % (Auto) 6.1 % (0.0-7.3); Platelet Count 307 K/mm3 (140-440); Red Blood Count 4.89 M/mm3 (3.65-5.03); Red Cell Distribution Width 19.7 % (13.2-15.2)
[2018-11-24 16:39] LABS: BUN/Creatinine Ratio 10; Blood Urea Nitrogen 6 mg/dL (7-17); Calcium 8.5 mg/dL (8.4-10.2); Hemolysis Index 33
[2018-11-24 16:55] LABS: Bacteria,Urine 1+ /HPF (Negative); Bilirubin,Urine NEG (Negative); Blood,Urine LG (Negative); Color,Urine Yellow (Yellow); Mucus,Urine 1+ /HPF; Urobilinogen,Urine < 2.0 mg/dL (<2.0)
--- NOTE | 2018-11-24 16:55 | Emergency Department Report ---
<SALASSRINIVAS - Last Filed: 11/24/18 16:53> ED Female HPI - General Chief complaint: Vaginal Bleeding Stated complaint: VAG BLEED Time Seen by Provider: 11/24/18 15:06 Source: patient Mode of arrival: Ambulatory Limitations: No Limitations - History of Present Illness Initial comments: Patient is a 32-year-old female who is presenting with some abnormal vaginal bleeding. Patient states that last month she had a five-day episode of bleeding which was very light compared to her normal menses. Patient states th at she stop bleeding and in 10 days later started bleeding again. Patient states now she is having heavy vaginal bleeding and she is concerned. Patient denies any chest pain shortness of breath fevers chills nausea vomiting. She does have some crampy lower abdominal discomfort. - Related Data Previous Rx's Medication Instructions Recorded Last Taken Type Acetaminophen/Codeine 1 tab PO Q6H PRN #25 tab 06/10/14 Unknown Rx [Acetaminophen-Codeine #3 TAB] Cyclobenzaprine [Flexeril 10mg] 10 mg PO TID PRN #30 tablet 06/10/14 Unknown Rx Lisinopril/Hydrochlorothiazide 1 tab PO QDAY #90 tablet 06/10/14 Unknown Rx [Zestoretic 10-12.5 mg] Phenazopyridine [Pyridium] 200 mg PO TID #7 tablet 06/15/14 Unknown Rx Sulfamethoxazole/Trimethoprim 1 each PO BID #6 tablet 06/15/14 Unknown Rx [Bactrim Ds] Cyclobenzaprine [Flexeril] 10 mg PO TID PRN #15 tablet 02/15/16 Unknown Rx Diclofenac Sodium 75 mg PO BID #20 tablet 02/15/16 Unknown Rx Albuterol Sulfate [Ventolin HFA] 2 puff IH Q4H PRN #1 hfa.aer.ad 03/26/16 Unknown Rx Cetirizine HCl [ZyrTEC] 10 mg PO DAILY #30 capsule 03/26/16 Unknown Rx cefUROXime [Ceftin] 500 mg PO Q12H #20 tablet 03/26/16 Unknown Rx guaiFENesin/DEXTROMETHORPHAN 1 tab PO BID #10 tab 03/26/16 Unknown Rx [Mucinex DM ER 600-30 mg TAB] Acetamin/Codeine 120-12Mg/5 ml 5 ml PO TID PRN #100 ml 03/17/17 Unknown Rx [Tylenol/Codeine 120-12 mg/5 ml] Cetirizine HCl [ZyrTEC] 10 mg PO QDAY #30 tab.chew 08/04/16 Unknown Rx Docusate Sodium [Colace CAP] 100 mg PO BID PRN #20 capsule 08/04/16 Unknown Rx Ferrous Sulfate [Feosol 325 MG tab] 325 mg PO QDAY #30 tablet 08/04/16 Unknown Rx Ibuprofen [Motrin 600 MG tab] 600 mg PO Q8H PRN #12 tablet 12/07/17 Unknown Rx cephALEXin [Keflex] 500 mg PO Q8H 7 Days #21 capsule 12/07/17 Unknown Rx Acetaminophen [Acetaminophen TAB] 1,000 mg PO Q6HR PRN #30 tablet 10/15/18 Unknown Rx Lisinopril/Hydrochlorothiazide 1 each PO DAILY #30 tablet 10/15/18 Unknown Rx [Zestoretic 10-12.5 mg Tablet] diphenhydrAMINE [Benadryl CAP] 25 mg PO Q6HR PRN #30 capsule 10/15/18 Unknown Rx Allergies Allergy/AdvReac Type Severity Reaction Status Date / Time No Known Allergies Allergy Verified 10/15/18 17:44 ED Review of Systems Comment: All other systems reviewed and negative ED Past Medical Hx - Past Medical History Previous Medical History?: Yes Hx Hypertension: Yes Hx Seizures: Yes Additional medical history: Vaginal delivery x 2 - Surgical History Past Surgical History?: Yes Additional Surgical History: . T & A. TUBAL LIGATION - Social History Smoking Status: Current Every Day Smoker Substance Use Type: Alcohol - Medications Home Medications: Home Medications Medication Instructions Recorded Confirmed Last Taken Type Acetaminophen/Codeine 1 tab PO Q6H PRN #25 tab 06/10/14 Unknown Rx [Acetaminophen-Codeine #3 TAB] Cyclobenzaprine [Flexeril 10mg] 10 mg PO TID PRN #30 tablet 06/10/14 Unknown Rx Lisinopril/Hydrochlorothiazide 1 tab PO QDAY #90 tablet 06/10/14 Unknown Rx [Zestoretic 10-12.5 mg] Phenazopyridine [Pyridium] 200 mg PO TID #7 tablet 06/15/14 Unknown Rx Sulfamethoxazole/Trimethoprim 1 each PO BID #6 tablet 06/15/14 Unknown Rx [Bactrim Ds] Cyclobenzaprine [Flexeril] 10 mg PO TID PRN #15 tablet 02/15/16 Unknown Rx Diclofenac Sodium 75 mg PO BID #20 tablet.dr 02/15/16 Unknown Rx Albuterol Sulfate [Ventolin HFA] 2 puff IH Q4H PRN #1 hfa.aer.ad 03/26/16 Unknown Rx Cetirizine HCl [ZyrTEC] 10 mg PO DAILY #30 capsule 03/26/16 Unknown Rx cefUROXime [Ceftin] 500 mg PO Q12H #20 tablet 03/26/16 Unknown Rx guaiFENesin/DEXTROMETHORPHAN 1 tab PO BID #10 tab 03/26/16 Unknown Rx [Mucinex DM ER 600-30 mg TAB] Acetamin/Codeine 120-12Mg/5 ml 5 ml PO TID PRN #100 ml 08/04/16 Unknown Rx [Tylenol/Codeine 120-12 mg/5 ml] Cetirizine HCl [ZyrTEC] 10 mg PO QDAY #30 tab.chew 08/04/16 Unknown Rx Docusate Sodium [Colace CAP] 100 mg PO BID PRN #20 capsule 08/04/16 Unknown Rx Ferrous Sulfate [Feosol 325 MG tab] 325 mg PO QDAY #30 tablet 08/04/16 Unknown Rx Ibuprofen [Motrin 600 MG tab] 600 mg PO Q8H PRN #12 tablet 12/07/17 Unknown Rx cephALEXin [Keflex] 500 mg PO Q8H 7 Days #21 capsule 12/07/17 Unknown Rx Acetaminophen [Acetaminophen TAB] 1,000 mg PO Q6HR PRN #30 tablet 10/15/18 Unknown Rx Lisinopril/Hydrochlorothiazide 1 each PO DAILY #30 tablet 10/15/18 Unknown Rx [Zestoretic 10-12.5 mg Tablet] diphenhydrAMINE [Benadryl CAP] 25 mg PO Q6HR PRN #30 capsule 10/15/18 Unknown Rx ED Physical Exam - General Limitations: No Limitations General appearance: alert, in no apparent distress - Head Head exam: Present: atraumatic, normocephalic - Eye Eye exam: Present: normal appearance - ENT ENT exam: Present: mucous membranes moist - Neck Neck exam: Present: normal inspection - Respiratory Respiratory exam: Present: normal lung sounds bilaterally. Absent: respiratory distress, wheezes, rales - Cardiovascular Cardiovascular Exam: Present: regular rate, normal rhythm, normal heart sounds. Absent: systolic murmur, diastolic murmur, rubs, gallop - GI/Abdominal GI/Abdominal exam: Present: soft, normal bowel sounds. Absent: distended, tenderness, guarding - Extremities Exam Extremities exam: Present: normal inspection - Back Exam Back exam: Present: normal inspection - Neurological Exam Neurological exam: Present: alert, oriented X3 - Psychiatric Psychiatric exam: Present: normal affect, normal mood - Skin Skin exam: Present: warm, dry, intact, normal color. Absent: rash ED Course - Reevaluation(s) Reevaluation #1: 11/24/18 16:54 Patient will have medical emergency ruled out which would include severe anemia and ectopic . Patient states she does have a history of tubal ligation. ED Medical Decision Making - Lab Data Result diagrams: 11/24/18 15:45 11/24/18 15:45 ED Disposition Clinical Impression: Abnormal menstrual cycle Disposition: - TO HOME OR SELFCARE Condition: Stable Additional Instructions: Follow-up with a [facility] doctor in 3-5 days or if symptoms worsen and continue return to emergency room as soon as possible. Referrals: [facility] [Primary Care Provider] - 3-5 Days BLAKE KING MD [Staff Physician] - 3-5 Days [facility] [Provider Group] - 3-5 Days Forms: Work/School Release Form(ED) <GABY FAUSTIN - Last Filed: 11/24/18 17:49> ED Review of Systems ROS: Stated complaint: VAG BLEED Other details as noted in HPI ED Course Vital Signs 11/24/18 14:50 Temperature 98.4 F Pulse Rate 81 Respiratory 20 Rate Blood Pressure 160/104 O2 Sat by Pulse 99 Oximetry ED Medical Decision Making - Lab Data Result diagrams: 11/24/18 15:45 11/24/18 15:45 - Medical Decision Making Patient was originally seen by Srinivas Vasquez and was given sign out to me for a pending laboratory results. As per Dr. Salas, if H&H is normal and negative test, no ultrasound needed and patient can be discharged. Laboratory are unremarkable. Patient is notified of the results with no question as noted by the patient. Patient was instructed to Follow-up with a [facility] doctor in 3-5 days or if symptoms worsen and continue return to emergency room as soon as possible. At time of discharge, the patient does not seem toxic or ill in appearance. No acute signs of distress noted. Patient agrees to discharge treatment plan of care. No further questions noted by the patient. Critical care attestation.: If time is entered above; I have spent that time in minutes in the direct care of this critically ill patient, excluding procedure time. ED Disposition Is pt being admited?: No Does the pt Need Aspirin: No
[2018-11-24 17:09] LABS: Mean Corpuscular Volume 64 fl (79-97)
[2018-11-24 17:09] LABS: HCG Qualitative,Urine Negative (Negative)
== END 2018-11-24 18:15 | disposition home or self-care (01) ==
LOC: ED 14:22
DX: N92.6 Irregular menstruation, unspecified (principal); I10 Essential (primary) hypertension; F17.200 Nicotine dependence, unspecified, uncomplicated; Z98.51 Tubal ligation status; Z79.899 Other long term (current) drug therapy
CPT/HCPCS: 36415; 80048; 81001; 81025; 85025; 99283

== ENCOUNTER 2018-12-31 18:22 | Emergency (ER) | payer OTHER ==
[2018-12-31 18:41] VITALS: BP 166/103
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
== END 2018-12-31 19:29 | disposition home or self-care (01) ==
LOC: ED 18:22
DX: M54.2 Cervicalgia (principal); M54.89 Other dorsalgia; V89.2XXA Person injured in unspecified motor-vehicle accident, traffic, initial encounter; Y93.89 Activity, other specified; Y92.410 Unspecified street and highway as the place of occurrence of the external cause; Y99.8 Other external cause status
CPT/HCPCS: 99281

== ENCOUNTER 2019-01-04 10:52 | Emergency (ER) | payer OTHER ==
[2019-01-04 12:00] VITALS: BP 160/105
--- NOTE | 2019-01-04 12:09 | Emergency Department Report ---
Suture/Staple Removal - HPI Chief Complaint: Laceration/Recheck/Suture Stated Complaint: SUTURE REMOVAL Time Seen by Provider: 01/04/19 11:59 When Sutures or Vanessa Placed: 5-7 Days Ago Wound Location: right cornter of eye. ED Review of Systems ROS: Stated complaint: SUTURE REMOVAL Other details as noted in HPI Comment: All other systems reviewed and negative ED Past Medical Hx - Past Medical History Hx Hypertension: Yes Hx Seizures: Yes Additional medical history: Vaginal delivery x 2 - Surgical History Additional Surgical History: . T & A. TUBAL LIGATION - Social History Smoking Status: Current Every Day Smoker Substance Use Type: None - Medications Home Medications: Home Medications Medication Instructions Recorded Confirmed Last Taken Type Acetaminophen/Codeine 1 tab PO Q6H PRN #25 tab 06/10/14 Unknown Rx [Acetaminophen-Codeine #3 TAB] Cyclobenzaprine [Flexeril 10mg] 10 mg PO TID PRN #30 tablet 06/10/14 Unknown Rx Lisinopril/Hydrochlorothiazide 1 tab PO QDAY #90 tablet 06/10/14 Unknown Rx [Zestoretic 10-12.5 mg] Phenazopyridine [Pyridium] 200 mg PO TID #7 tablet 06/15/14 Unknown Rx Sulfamethoxazole/Trimethoprim 1 each PO BID #6 tablet 06/15/14 Unknown Rx [Bactrim Ds] Cyclobenzaprine [Flexeril] 10 mg PO TID PRN #15 tablet 02/15/16 Unknown Rx Diclofenac Sodium 75 mg PO BID #20 tablet.dr 02/15/16 Unknown Rx Albuterol Sulfate [Ventolin HFA] 2 puff IH Q4H PRN #1 hfa.aer.ad 03/26/16 Unknown Rx Cetirizine HCl [ZyrTEC] 10 mg PO DAILY #30 capsule 03/26/16 Unknown Rx cefUROXime [Ceftin] 500 mg PO Q12H #20 tablet 03/26/16 Unknown Rx guaiFENesin/DEXTROMETHORPHAN 1 tab PO BID #10 tab 03/26/16 Unknown Rx [Mucinex DM ER 600-30 mg TAB] Acetamin/Codeine 120-12Mg/5 ml 5 ml PO TID PRN #100 ml 08/04/16 Unknown Rx [Tylenol/Codeine 120-12 mg/5 ml] Cetirizine HCl [ZyrTEC] 10 mg PO QDAY #30 tab.chew 08/04/16 Unknown Rx Docusate Sodium [Colace CAP] 100 mg PO BID PRN #20 capsule 08/04/16 Unknown Rx Ferrous Sulfate [Feosol 325 MG tab] 325 mg PO QDAY #30 tablet 08/04/16 Unknown Rx Ibuprofen [Motrin 600 MG tab] 600 mg PO Q8H PRN #12 tablet 12/07/17 Unknown Rx cephALEXin [Keflex] 500 mg PO Q8H 7 Days #21 capsule 12/07/17 Unknown Rx Acetaminophen [Acetaminophen TAB] 1,000 mg PO Q6HR PRN #30 tablet 10/15/18 Unknown Rx Lisinopril/Hydrochlorothiazide 1 each PO DAILY #30 tablet 10/15/18 Unknown Rx [Zestoretic 10-12.5 mg Tablet] diphenhydrAMINE [Benadryl CAP] 25 mg PO Q6HR PRN #30 capsule 10/15/18 Unknown Rx Naproxen [Naprosyn] 500 mg PO BID PRN #20 tablet 12/31/18 Unknown Rx traMADol [Ultram 50 MG tab] 50 mg PO Q6HR PRN #7 tablet 12/31/18 Unknown Rx Suture Removal Exam - Exam General: Vital signs noted. No distress. Alert and acting appropriately. Wound: No Pathologic Erythema, No Tenderness, No Drainage, No Pus, No Wound Dehiscence Other Systems: All other systems reviewed and are unremarkable. ED Recheck MDM - Core Measures AMI Core Measures Followed: Yes Measure Exclusions: not indicated - Differential Diagnosis Suture/Staple Removal Critical care attestation.: If time is entered above; I have spent that time in minutes in the direct care of this critically ill patient, excluding procedure time. ED Disposition Clinical Impression: Visit for suture removal Disposition: DC-01 TO HOME OR SELFCARE Is pt being admited?: No Does the pt Need Aspirin: No Condition: Stable Instructions: Suture Removal (ED)
== END 2019-01-04 12:44 | disposition home or self-care (01) ==
LOC: ED 10:52
DX: S01.111D Laceration without foreign body of right eyelid and periocular area, subsequent encounter (principal); X58.XXXD Exposure to other specified factors, subsequent encounter